=== PATIENT | male | born 1955 | race Caucasian/White ===

== ENCOUNTER → 2017-01-11 | Outpatient (CLI) | payer OTHER | LOC: BMCIMAGING 14:06 | PROVIDERS: ATTEND Internal Medicine | DX: R05 Cough (principal) ==

== ENCOUNTER → 2017-04-08 | Outpatient (CLI) | payer OTHER | LOC: BMCIMAGING 11:07 | PROVIDERS: ATTEND Family Medicine | DX: M51.37 Other intervertebral disc degeneration, lumbosacral region (principal); M51.26 Other intervertebral disc displacement, lumbar region; M46.96 Unspecified inflammatory spondylopathy, lumbar region; M53.84 Other specified dorsopathies, thoracic region; M46.97 Unspecified inflammatory spondylopathy, lumbosacral region ==

== ENCOUNTER → 2018-03-13 | Outpatient (CLI) | payer OTHER | LOC: BMCIMAGING 12:18 | PROVIDERS: ATTEND Emergency Medicine | DX: R05 Cough (principal); M41.84 Other forms of scoliosis, thoracic region ==

== ENCOUNTER → 2018-03-21 | Outpatient (CLI) | payer OTHER | LOC: FIMAGING 10:19 | PROVIDERS: ATTEND Internal Medicine | DX: J32.9 Chronic sinusitis, unspecified (principal) ==

== ENCOUNTER 2018-06-11 11:16 | Emergency (ER) | payer OTHER ==
--- NOTE | 2018-06-11 11:53 | EDPHY ---
H & P Stated Complaint: fall yesterday hit head l ribs ank knee on coumadin Time Seen by Provider: 06/11/18 11:34 HPI/ROS: CHIEF COMPLAINT: Fall, possible head injury HISTORY OF PRESENT ILLNESS: 62-year-old male presents after a fall with a possible head injury. Yesterday he was walking up a ramp and tripped and fell over the curb. He fell forward, striking his left knee and left ribs. Possibly hit his head as well. He was seen a [facility] just prior to arrival and they were concerned about a head injury. Sent him to the emergency department for CT scan of the brain. REVIEW OF SYSTEMS: complete 10 point ROS negative except as noted in the HPI - Personal History Current Tetanus Diphtheria and Acellular Pertussis (TDAP): Unsure - Medical/Surgical History Hx Asthma: No Hx Chronic Respiratory Disease: No Hx Diabetes: No Hx Cardiac Disease: No Hx Renal Disease: No Hx Cirrhosis: No Hx Alcoholism: No Hx HIV/AIDS: No Hx Splenectomy or Spleen Trauma: No Other PMH: pe seizure disorder htn - Social History Smoking Status: Never smoked - Physical Exam Exam: General Appearance: Alert, pleasant Head: Atraumatic Eyes: No conjunctival erythema, PERRLA, EOMI ENT, Mouth: no oral trauma, no bony tenderness Neck: Nontender, full range of motion without pain Respiratory: Abrasion left anterior chest wall, No chest wall tenderness, lungs clear bilaterally Cardiovascular: Regular rate and rhythm Abdomen: Abdomen is soft and nontender Skin: No lacerations Back: No midline T/L/S tenderness Extremities: Pelvis is stable and nontender; left knee-small abrasion anteriorly over the patella, no pain with range of motion, no joint effusion Neurological: A&Ox3, normal motor function, normal sensory exam, cranial nerves intact Psychiatric: Mood and affect normal Constitutional: Initial Vital Signs Temperature (C) 36.7 C 06/11/18 11:21 Heart Rate 73 06/11/18 11:21 Respiratory Rate 18 06/11/18 11:21 Blood Pressure 115/62 06/11/18 11:21 O2 Sat (%) 95 06/11/18 11:21 O2 Delivery Mode Room Air Allergies/Adverse Reactions: Penicillins Allergy (Verified 06/11/18 11:17) Home Medications: Medication Instructions Recorded COUMADIN 09/28/09 DIOVAN 09/28/09 Celontin 06/11/18 [facility] 06/11/18 Medical Decision Making - Diagnostics Imaging Results: Imaging Impressions Chest X-Ray 06/11/18 11:43 Impression: Nothing acute identified. Head CT 06/11/18 11:43 Impression: 1. No acute intracranial findings. 2. Diffuse cerebral atrophy with periventricular and subcortical low attenuation consistent with chronic microvascular ischemic gliosis. Findings discussed with ABELARDO IVERSON 06/11/2018 at 12:12. Knee X-Ray 06/11/18 11:44 Impression: Nothing acute identified. Imaging: Discussed imaging studies w/ aircraft maintenance supervisor Radiologist, I viewed and interpreted images myself ED Course/Re-evaluation: This pt presents after [facility], on Coumadin. CT brain unremarkable. CXR and left knee Xray negative. Results d/w pt. Safe/stable for d/c home. Differential Diagnosis: Differential diagnosis includes though it is not limited to fracture, intracranial hemorrhage, pneumothorax, hemothorax, intra-abdominal hemorrhage. - Data Points Laboratory Results: 06/11/18 11:48 PT 24.8 SEC H SEC (12.0-15.0) INR 2.24 H (0.83-1.16) Departure - Departure Disposition: Home, Routine, Self-Care Clinical Impression: Contusion Qualifiers: Encounter type: initial encounter Contusion area: thoracic wall Contusion of thoracic wall detail: front wall of thorax Laterality: left Qualified Code(s): S20.212A - Contusion of left front wall of thorax, initial encounter Head injury Qualifiers: Encounter type: initial encounter Qualified Code(s): S09.90XA - Unspecified injury of head, initial encounter Condition: Good Instructions: Head Injury (ED), Contusion in Adults (ED) Referrals: Kyree Luciano MD [Primary Care Provider] - As per Instructions
[2018-06-11 12:03] LABS: INR 2.24 (0.83-1.16); PROTIME(PATIENT) 24.8 SEC (12.0-15.0)
[2018-06-11 13:28] VITALS: BP 103/68
== END 2018-06-11 13:28 | disposition home or self-care (01) ==
DX: S20.212A Contusion of left front wall of thorax, initial encounter (principal); S09.90XA Unspecified injury of head, initial encounter; Z79.01 Long term (current) use of anticoagulants; W01.0XXA Fall on same level from slipping, tripping and stumbling without subsequent striking against object, initial encounter; Y93.01 Activity, walking, marching and hiking; Y92.9 Unspecified place or not applicable; Y99.9 Unspecified external cause status

== ENCOUNTER → 2018-12-01 | Outpatient (CLI) | payer OTHER, MEDICARE | LOC: FIMAGING 09:56 | PROVIDERS: ATTEND Psychiatry & Neurology Neurology | DX: G31.9 Degenerative disease of nervous system, unspecified (principal); R94.02 Abnormal brain scan; G40.909 Epilepsy, unspecified, not intractable, without status epilepticus; J38.3 Other diseases of vocal cords | CPT/HCPCS: 70551-PN ==

== ENCOUNTER → 2018-12-08 | Outpatient (CLI) | payer OTHER, MEDICARE ==
--- NOTE | 2018-12-09 05:36 | CPEEG ---
[f rep st] ELECTROENCEPHALOGRAM A 4-HOUR VIDEO EEG DATE OF STUDY: 12/08/2018 DATE OF INTERPRETATION: 12/08/2018. INTERPRETATION: This 4-hour video EEG recording is normal. There were no potentially epileptogenic abnormalities present during the awake or sleep recordings. During the video EEG monitoring session, the patient did not have any clinical events. REPORT: This 4-hour video EEG contains 10 Hz alpha activity to the posterior head regions. The back ground activity was normal and symmetric. There was no abnormal activation at rest, during photic st imulation or hyperventilation. The patient became drowsy and fell asleep during the study. There wa s no abnormal activation during drowsiness, sleep, or during times of arousal. The patient did not h ave any clinical events during the video EEG monitoring session. /[id number]/MODL
== END ==
LOC: FCPNEURO 08:20
PROVIDERS: ATTEND Psychiatry & Neurology Neurology
DX: G40.909 Epilepsy, unspecified, not intractable, without status epilepticus (principal); J38.3 Other diseases of vocal cords